=== PATIENT | female | born 1970 | race Caucasian/White ===

== ENCOUNTER → 2016-12-12 | Outpatient (CLI) | payer BC ==
--- NOTE | 2016-12-12 12:01 | US ---
EXAMINATION TYPE: US carotid duplex BILAT DATE OF EXAM: 12/12/2016 COMPARISON: NONE CLINICAL HISTORY: G45.9Transient cerebral ischemic attack, unspecified. Dizziness, low BP that has re cently become elevated EXAM MEASUREMENTS: RIGHT: Peak Systolic Velocity (PSV) cm/sec ----- Right CCA: 117.1 ----- Right ICA: 105.1 ----- Right ECA: 102.6 ICA/CCA ratio: 0.9 RIGHT: End Diastole cm/sec ----- Right CCA: 29.9 ----- Right ICA: 46.9 ----- Right ECA: 14.6 LEFT: Peak Systolic Velocity (PSV) cm/sec ----- Left CCA: 129.0 ----- Left ICA: 135.4 ----- Left ECA: 93.8 ICA/CCA ratio: 1.1 LEFT: End Diastole cm/sec ----- Left CCA: 37.1 ----- Left ICA: 22.8 ----- Left ECA: 10.2 VERTEBRALS (direction of flow): Right Vertebral: Antegrade Left Vertebral: Antegrade Rhythm: Normal Mild homogeneous plaque with no stenosis seen Grayscale images show no significant focal plaque at carotid bulb level bilaterally. Increased peak s ystolic velocity in bilateral common carotid arteries raises concern for underlying hypertension. Cli nical correlation advised. IMPRESSION: No hemodynamically significant stenosis in either internal carotid artery. Clinical Juliano elate for underlying hypertension advised.
== END | disposition home or self-care (01) ==
LOC: RADUSWWP 11:16
PROVIDERS: ATTEND Internal Medicine
DX: G45.9 Transient cerebral ischemic attack, unspecified (principal)
CPT/HCPCS: 93880

== ENCOUNTER → 2016-12-12 | Outpatient (CLI) | payer BC ==
--- NOTE | 2016-12-12 15:32 | WWHP ---
[facility] - HISTORY AND PHYSICAL DATE OF SERVICE: 12/12/2016 CHIEF COMPLAINT: The patient is here for her routine gynecologic exam and mammogram. HPI: This is a 46-year-old G1, P1, with an LMP of 01/2015. The patient was last seen here in 2014. The patient did undergo a pelvic ultrasound which showed small complex ovarian cysts. An MRI also showed cysts which were felt to possibly represent dermoid cyst or hemorrhagic cysts. We had planned to follow this conservatively. Because of her mother's history of ovarian cancer, She decided to see her mother's [employer] oncologist who apparently recommended hysterectomy. Hysterectomy was done in 01/[address] Bragg according to the patient. This was a laparoscopic hysterectomy with BSO. Benign findings were noted according to the patient. The patient did not have any followup with this doctor. She states he apparently had moved out of the area until recently and now he is back in [place]. She did not have any significant problems after her surgery, except she does have some slight pruritus around the laparoscopic incisions at times. She does feel warm or hot most of the day. She also has noticed a decrease in sex drive since the surgery. She has had problems with vaginal dryness as well since the surgery. 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 She believes she was once advised to avoid hormone treatments because of the KTS syndrome. She was told she was tested for cancer genes because of her mother's history of ovarian cancer. She states the cancer gene testing was negative. 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 Dr. Harman is now her primary care physician. MEDICATIONS: None. ALLERGIES: No known drug allergies. PAST SURGICAL HISTORY: Knee surgery at age 14 to slow down the growth of the right leg. This is related to her KTS syndrome. Also laparoscopic hysterectomy with BSO in 01/2015. PAST [employer] HISTORY: She is status post hysterectomy with BSO as above. She has no history of STDs . SOCIAL HISTORY: She denies tobacco and drug use. Has about 3 alcoholic drinks per week. She has been since 2017 and this is her 2nd marriage. FAMILY HISTORY: Mother of ovarian cancer at age 69. REVIEW OF SYSTEMS: The patient had lost about 50 pounds using Adipex approximately 2 to 3 years ago. She has gained about 40 pounds back more recently. She denies respiratory, cardiac or GI problems. She has had some problems with some lightheadedness and passing out. She is undergoing workup with Dr. Harman. PHYSICAL EXAM: Blood pressure 110/71, height 5 feet 4 inches, weight 199 pounds, temperature 98.0, pulse 76. This is a well-developed, well-nourished, white female, who is alert and oriented x3, in no acute distress. HEENT is within normal limits. NECK: Supple without mass or thyromegaly. CHEST AND LUNGS: Clear to auscultation. HEART: Regular rate and rhythm. Breasts are without mass or discharge. Axillary exam is negative for adenopathy. Back negative for CVA tenderness. ABDOMEN: Soft, nontender, without palpable masses. PELVIC EXAM: Normal external genitalia with no significant atrophy. Vagina reveals minimal atrophy without lesions. There is no evidence of prolapse. Bimanual exam is negative for mass or tenderness. Rectovaginal exam is negative for mass or tenderness and is negative for occult blood. EXTREMITIES: Nontender. IMPRESSION: 1. A 46-year-old surgically menopausal female, status post hysterectomy with bilateral salpingo-oophorectomy in 2014 with benign findings. 2. Family history of ovarian cancer in her mother and this was one of the reasons why she underwent her hysterectomy with bilateral salpingo-oophorectomy. 3. Dyspareunia, secondary to vaginal dryness. 4. Low sex drive. 5. History of vascular syndrome in her right leg. PLAN: 1. PAP smears have been discontinued. 2. Self breast examination was discussed. 3. Mammogram will be done today. 4. I have expressed my concern with using systemic ERT for her symptoms. We have discussed other symptoms such as SSRI medications, but side effects could include worsening of her sex drive and weight gain. We have decided to proceed with low- dose vaginal estrogen in the form of Vagifem 10 mcg intravaginally 2 times weekly. If her menopausal symptoms are significant enough, I have recommended that she follow up with a Vascular Surgeon regarding her vascular syndrome in her right leg to see if she would be a candidate for ERT. This would only be if they feel she is not at a significant risk for blood clots because of this syndrome. 5. She will also return in 1 year and p.r.n. MMODL / IJN: [id number] /
--- NOTE | 2016-12-14 10:48 | MM ---
Reason for exam: screening (asymptomatic). Last mammogram was performed 2 years and 2 months ago. History: Patient is postmenopausal. Physical Findings: A clinical breast exam by your physician is recommended on an annual basis and results should be correlated with mammographic findings. MG 3D Screening Mammo W/Cad Bilateral CC and MLO view(s) were taken. Prior study comparison: October 13, 2014, bilateral MG diagnostic mammo w CAD SARAY. April 22, 2013, CAD bilateral diagnostic mammogram. The breast tissue is heterogeneously dense. This may lower the sensitivity of mammography. Stable benign circumscribed mass upper outer quadrant right breast, likely cyst. Additional small 4mm cyst in the central retroglandular right breast. No significant changes when compared with prior studies. ASSESSMENT: Benign, BI-RAD 2 RECOMMENDATION: Routine screening mammogram of both breasts in 1 year.
== END ==
LOC: WWCWWP 09:49
PROVIDERS: ATTEND Obstetrics & Gynecology
DX: Z12.31 Encounter for screening mammogram for malignant neoplasm of breast (principal)
CPT/HCPCS: 77063; G0202

== ENCOUNTER → 2018-09-22 | Outpatient (CLI) | payer BC ==
--- NOTE | 2018-09-23 10:28 | MM ---
Reason for exam: screening (asymptomatic). Last mammogram was performed 1 year and 9 months ago. History: Patient is postmenopausal. Physical Findings: A clinical breast exam by your physician is recommended on an annual basis and results should be correlated with mammographic findings. MG 3D Screening Mammo W/Cad Bilateral CC and MLO view(s) were taken. Prior study comparison: December 12, 2016, bilateral MG 3d screening mammo w/cad. October 13, 2014, bilateral MG diagnostic mammo w CAD SARAY. The breast tissue is extremely dense which could obscure a lesion on mammography. Benign appearing bilateral calcifications. There is chronic nodularity bilaterally. No significant changes when compared with prior studies. ASSESSMENT: Benign, BI-RAD 2 RECOMMENDATION: Routine screening mammogram of both breasts in 1 year.
== END | disposition home or self-care (01) ==
LOC: RADMAMWWP 09:50
PROVIDERS: ATTEND Internal Medicine
DX: Z12.31 Encounter for screening mammogram for malignant neoplasm of breast (principal)
CPT/HCPCS: 77063; 77067

== ENCOUNTER → 2021-03-24 | Outpatient (CLI) | payer BC ==
--- NOTE | 2021-03-27 09:55 | MM ---
Reason for exam: screening (asymptomatic). Last mammogram was performed 2 years and 6 months ago. History: Patient is postmenopausal. Physical Findings: A clinical breast exam by your physician is recommended on an annual basis and results should be correlated with mammographic findings. MG 3D Screening Mammo W/Cad Bilateral CC and MLO view(s) were taken. Prior study comparison: September 22, 2018, bilateral MG 3d screening mammo w/cad. December 12, 2016, bilateral MG 3d screening mammo w/cad. The breast tissue is heterogeneously dense. This may lower the sensitivity of mammography. There are benign appearing round calcifications bilaterally. There is no discrete abnormality. ASSESSMENT: Benign, BI-RAD 2 RECOMMENDATION: Routine screening mammogram of both breasts in 1 year.
== END | disposition home or self-care (01) ==
LOC: RADMAMWWP 07:02
PROVIDERS: ATTEND Internal Medicine
DX: Z12.31 Encounter for screening mammogram for malignant neoplasm of breast (principal)
CPT/HCPCS: 77063; 77067